=== PATIENT | female | born 1995 | race Caucasian/White ===

== ENCOUNTER 2023-10-18 00:06 | Inpatient (IN) ==
[2023-10-18] MEDS ORDERED: LIDOCAINE 1% LOCAL 20 ML VIAL INFIL PRN (00:46)
[2023-10-18] MEDS ORDERED: PENICILLIN GK 6 MU in DEXTROSE 5% 250 ML IV STA (00:46)
[2023-10-18] MEDS ORDERED: OXYTOCIN 30 UNITS/NSS 30 UNITS/500 ML BAG IV PRN ×2 (00:46→11:45)
[2023-10-18] MEDS ORDERED: BETAMETH SOD PHOS/ACETATE IA 6 MG/ML IM STA (00:50)
[2023-10-18] MEDS ORDERED: MAG SULFATE 6GM BOLUS FROM BAG IV ONE (00:51)
[2023-10-18] MEDS ORDERED: MAGNESIUM SULFATE / WTR 40 GM/1,000 ML BAG IV SCH (01:00)
[2023-10-18] MEDS ORDERED: MAGNESIUM SULFATE 40GM / WTR 1,000 ML BAG IV ONE (01:03)
[2023-10-18] MEDS ORDERED: BETAMETH SOD PHOS/ACETATE IA 6 MG/ML ONE (01:04)
--- NOTE | 2023-10-18 01:06 | History & Physical Report ---
Date of Service October 18, 2023 Assessment & Plan (1) labor in third trimester: Plan: Patient with contractions, bloody show, and advanced cervical dilation. Advised that she is at significant risk of delivery. We will manage her with magnesium bolus for neuroprotection, BMTZ, and GBS prophylaxis for unknown status at gestation. Patient was made aware that although we can hope labor will arrest, we need to anticipate that it likely will proceed to complete dilation and plan for that possibility. She does not have established care with either [facility] or [place] at this time and would be open to utilizing either for her infant's care if required. 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 Admission and Anticipated Discharge Date Admission Date: October 18, 2023 History of Present Illness Primary Care Provider: Viktoria Kim 28yo at 34w3d with [facility]. Patient c/o spotting in her underwear earlier today and states she called the office at 3pm and spoke with a nurse, but I cannot find documentation to reflect that this occurred or what was advised. She then paged the integration assistant this evening when she noted heavy flow of bright red blood. She has felt movement this evening, no leaking of water, and was feeling cramps. She drove to [facility]. Patient tells a nurse in her room that she has been drinking raspberry leaf tea. has been uncomplicated until today. On arrival to L&D the patient was found to have bright red blood of a axstuqonn-lodh-pzkr volume, with blood staining on the mons and perineum. T Cat 1, [place] Q3-6. Patient was noted to speak fluidly through a traced contraction, but when asked if she had been aware of it, she said yes she had felt it and she had been experiencing contractions like that every 3 minutes prior to coming in as well. Sterile speculum exam showed anterior lip of cervix visible above a large bulging bag of membranes. Digital exam was 8-9cm dilated, 75% effaced, -1 with vertex presentation. Allergies Allergy/AdvReac Type Severity Reaction Status Date / Time No Known Allergies Allergy Verified 10/02/23 16:21 Home Medications Medication Instructions Recorded Confirmed Type vit no.[id number] PO 04/10/23 10/02/23 History [Classic ] ondansetron HCl 4 mg tablet 4 mg PO Q6H PRN nausea and 05/25/23 10/02/23 Rx vomiting #20 tabs docusate sodium [Colace] PO PRN 06/13/23 10/02/23 History triamcinolone acetonide 0.1 % 1 applic topical BID #30 grams 08/07/23 10/02/23 Rx topical cream Patient History Medical History (Updated 10/18/23 @ 01:01 by Yulia Carreno MD) Varicella vaccination Surgical History (Updated 04/10/23 @ 13:11 by Pam Aguirre) Status post surgery L little finger Family History (Updated 04/10/23 @ 13:02 by Pam Aguirre) Mother Hypothyroid Denies family history of Ovarian cancer Breast cancer Colorectal cancer Social History (Updated 04/10/23 @ 13:04 by Pam Aguirre) Smoking Status: Never smoker Do You Dip or Chew Tobacco: No; Hx Alcohol Use: No Hx Substance Use: No Preferred Language: Vietnamese Communication Ability: Effective Aluminum Pool Installer Required: No Beliefs That Will Affect Care: None marital status: marital status details: Justin Felix (26) [phone] Current Living Situation: Spouse Current Living Situation Comment: lives with spouse, dogs current occupational status: employed current occupation: [employer] teacher Other Information That Helps Us Care for You: No Assistive Devices: None Physical Exam Constitutional: WD/WN, vitals as above + in distress Eyes: PERRL, conjunctivae normal, anicteric sclerae ENMT: external ear and nose normal, oropharynx normal Neck: supple Respiratory: normal respiratory effort and able to speak in complete sentences; no respiratory distress Cardiovascular: Rate/Rhythm: regular rate and regular rhythm Extremities: + pedal edema Gastrointestinal (Abdomen): Gravid / AGA, nontender Musculoskeletal: no cyanosis or clubbing, extremities motor strength 5/5 Skin: no rashes, warm and dry Neurologic: patellar DTR's 2+ bilat, sensation intact Psychiatric: A+Ox3, euthymic affect Genitourinary: Speculum/Bimanual Exam: + vaginal bleeding; no vaginal lesions OB Exam Abdomen: + vertex and + regular contractions (Q3) Manual OB Exam: + cervical dilation 8 cm, + cervical effacement 70%, + station -1 and + amniotic fluid (No leaking evident) OB Exam Monitor Tracing: + external FHT monitor used, + external uterine monitor used and + category I Lymphatic: no cervical or axillary lymphadenopathy Results & Data Vital Signs (Past 12 Hours) Vital Signs Temp Pulse Resp BP 10/18/23 00:11 18 10/18/23 00:11 98.2 F 83 18 138/88 Coding Level of Care Code None Diagnoses labor in third trimester O60.03
[2023-10-18] MEDS: LACTATED RINGER'S 1,000 ML IV PRN ×2 (01:31→06:59)
--- NOTE | 2023-10-18 01:33 | Communication Note ---
Date of Service: October 18, 2023 I discussed this case with [facility], and spoke with one of the neonatologists there. In the event of a here tonight with an infant requiring NICU care they have available space and will be able to accept. This is in line with the preferences of the patient as well.
--- NOTE | 2023-10-18 01:37 | Labor Progress Brief Note ---
Date of Service October 18, 2023 Subjective Contractions feeling more intense to the patient. Had intermittent urge to bear down but that has gone away at this moment. Good FM, VB continues, no ROM. Aware of PTL and aware that [facility] would be the likely NICU team to assist / accept transfer if needed. Assessment & Plan (1) labor in third trimester: Plan: PCN for GBS prophy s/p Mag 6g bolus for neuroprotection BMTZ first dose given Fetus palpates vertex Bleeding is more than anticipated for bloody show a/w dilation, so some concern for partial abruption. UDS sent, and status closely monitored. No current signs of infection. Patient counseled on likely delivery in the near future given advanced dilation. Since not expecting to transfer pre-delivery, 1g/hr magnesium will not be administered, and only the neuro mag bolus will be given. Admission and Anticipated Discharge Date Admission Date: October 18, 2023 Physical Exam Physical Exam: Tolerating contractions Genitourinary: FHT Cat 1 [place] Q3-5 when traced, lots of artifact Not re-examined at this time Results & Data Vital Signs (Past 12 Hours) Vital Signs Temp Pulse Resp BP 10/18/23 00:11 18 10/18/23 00:11 98.2 F 83 18 138/88 Coding Level of Care Code None Diagnoses labor in third trimester O60.03
[2023-10-18] MEDS ORDERED: SODIUM CHLORIDE 0.9% 250 ML IV PRN (01:45)
[2023-10-18 01:57] LABS: Hematocrit (blood only) 33.8 % (37.0-47.0); Hemoglobin 11.9 g/dl (12.0-16.0); Mean Corpuscular Hemoglobin 31.2 pg (25.0-34.0); Mean Corpuscular Hgb Conc 35.2 g/dL (32.0-36.0); Mean Corpuscular Volume 88.7 fL (80.0-100.0); Mean Platelet Volume 11.8 fL (9.4-12.4); Platelet Count 206 K/uL (130-400); RDW Coefficient of Variation 12.2 % (11.5-14.5); RDW Standard Deviation 39.7 fL (36.4-46.3); Red Blood Count 3.81 M/uL (4.20-5.40); White Blood Count 11.65 K/ul (4.8-10.8)
[2023-10-18] MEDS ORDERED: SODIUM CHLORIDE 0.9% PF INJ 10 ML VIAL ONE (02:06)
[2023-10-18] MEDS ORDERED: BUPIVACAINE 0.25% PF 30 ML VIAL ONE (02:06)
[2023-10-18] MEDS ORDERED: fentaNYL citrate PF 100 MCG/2 ML VIAL ONE (02:06)
[2023-10-18] MEDS ORDERED: fentANYL 2 MCG/ML BUPIVacaine 0.125%-NSS 100ML BAG ONE (02:06)
[2023-10-18] MEDS ORDERED: ePHEDrine sulfate 50 MG/ML AMP ONE (02:06)
[2023-10-18 02:07] LABS: Albumin Level 3.3 gm/dl (3.4-5.0); Bilirubin,Total 0.3 mg/dl (0.2-1.0); Calcium 8.2 mg/dl (8.6-10.3); Potassium 3.6 mmol/L (3.5-5.1)
[2023-10-18] MEDS ORDERED: LIDOCAINE 2%/EPINEPHRINE 1:200,000 20 ML PF ONE (02:07)
[2023-10-18 02:09] LABS: Amphetamines+Metham, Urine Neg (Neg); Barbiturates, Urine Neg (Neg); Benzodiazepine, Urine Neg (Neg); Cocaine, Urine Neg (Neg); MDMA (Ecstacy), Urine Neg (Neg); Marijuana, Urine Neg (Neg); Methadone, Urine Neg (Neg); Opiate, Urine Neg (Neg); Phencyclidine, Urine Neg (Neg)
[2023-10-18 02:13] LABS: Albumin Globulin Ratio 1.1 (0.9-2); BUN Creatinine Ratio 18.5 (10-20); Creatinine Clr Calc Pharmacy 141.9 ml/min; Est GFR (Non-African American) 122.5 ml/min; Globulin 3.1 gm/dl (2.5-4.0); Total Protein 6.4 gm/dl (6.0-8.3)
[2023-10-18] MEDS ORDERED: NALOXONE HCL 0.4 MG/1 ML VIAL/CARP IV PRN (02:30)
[2023-10-18] MEDS ORDERED: NALOXONE HCL 1 MG in SODIUM CHLORIDE 0.9% 1,000 ML IV PRN (02:30)
[2023-10-18] MEDS ORDERED: SODIUM CHLORIDE 0.9% PF INJ 10 ML VIAL EPI PRN (02:30)
[2023-10-18] MEDS ORDERED: LIDOCAINE 2%/EPINEPHRINE 1:200,000 20 ML PF EPI STA (02:30)
[2023-10-18] MEDS ORDERED: ePHEDrine sulfate 50 MG/ML AMP IV PRN (02:30)
[2023-10-18] MEDS ORDERED: BUPIVACAINE 0.25% PF 30 ML VIAL EPI PRN (02:30)
[2023-10-18] MEDS ORDERED: LIDOCAINE 2% MPF LOCAL 5 ML VIAL EPI PRN (02:30)
[2023-10-18] MEDS ORDERED: BUPIVACAINE 0.25% PF 30 ML VIAL EPI STA (02:30)
[2023-10-18] MEDS ORDERED: ROPIVACAINE 0.5% PF 5 MG/ML 20 ML VIAL EPI PRN (02:30)
[2023-10-18] MEDS ORDERED: NALBUPHINE HCL 5 MG in SYRINGE 0 ML IV PRN (02:30)
[2023-10-18] MEDS ORDERED: SODIUM CHLORIDE 0.9% PF INJ 10 ML VIAL EPI STA (02:30)
[2023-10-18] MEDS ORDERED: fentANYL 2 MCG/ML BUPIVacaine 0.125%-NSS 100ML BAG EPI PRN (02:30)
[2023-10-18] MEDS ORDERED: fentaNYL citrate PF 100 MCG/2 ML VIAL EPI STA (02:30)
[2023-10-18] MEDS ORDERED: fentaNYL citrate PF 100 MCG/2 ML VIAL EPI PRN (02:30)
[2023-10-18] MEDS ORDERED: diphenhydrAMINE 50 MG/ML VIAL IV PRN (02:30)
--- NOTE | 2023-10-18 02:30 | Anesthesiology Consultation ---
Date of Service October 18, 2023 Assessment & Plan ASA ASA2 Proposed Anesthesia Anesthesia Type: Labor Epidural History Height/Weight Height: 5 ft 7 in Weight: 78.925 kg Allergies Allergy/AdvReac Type Severity Reaction Status Date / Time No Known Allergies Allergy Verified 10/02/23 16:21 Medications Home Medications Medication Instructions Recorded Confirmed Last Taken vit no.[id number] 1 tabs PO DAILY 04/10/23 10/18/23 10/17/23 [Classic ] Active Medications Generic Name Dose Route Start Last Admin Trade Name Freq PRN Reason Stop Dose Admin Lactated Ringer's 1,000 mls @ 125 mls/hr 10/18/23 00:46 10/18/23 02:31 Lr IV 10/20/23 00:45 999 mls/hr .Q8H PRN Infusion L&D Protocol Protocol Past Medical History Medical History Varicella vaccination Past Family History Family History Mother Hypothyroid Denies family history of Ovarian cancer Breast cancer Colorectal cancer Past Surgical History Surgical History Status post surgery L little finger Social History Smoking Status: Never smoker Do You Dip or Chew Tobacco: No Hx Alcohol Use: No Hx Substance Use: No Physical Exam Vital Signs Last Vital Signs Temp 36.8 C 10/18/23 00:11 Pulse 91 H 10/18/23 03:03 Resp 18 10/18/23 00:11 BP 115/65 10/18/23 03:02 Pulse Ox 98 10/18/23 03:03 Testing Laboratory Results 10/18/23 01:30 10/18/23 01:30
[2023-10-18] MEDS: PENICILLIN GK 3 MU in DEXTROSE 5% 100 ML IV PRN ×2 (05:05→09:16)
--- NOTE | 2023-10-18 07:42 | Labor Progress Brief Note ---
Date of Service October 18, 2023 Subjective Delayed documentation; patient seen and examined around 0630. Comfortable with epidural, has been able to rest. VB has slowed significantly No LOF Assessment & Plan (1) labor in third trimester: Plan: Patient counseled this morning, currently in arrested labor. Suspicion of partial abruption as an inciting event vs bloody show from cervical dilation due to primary PTL. Bleeding has essentially stopped and status has been reassuring throughout her admission. Discussed that a patient in arrested PTL is often transferred to a tertiary center with NICU care. However, in this specific case, the patient has arrested with advanced dilation and is at risk of rapidly proceeding from her current status to delivery. Transfer via a rapid method such as flight (20 min between hospitals) could minimize the risk of her delivering outside a hospital, but icy / freezing-rain weather prohibits that option at this time. Transfer via ground transport (2-3 hours between hospitals) poses a higher risk of the patient delivering en route. Discussion with the patient reveals that this makes her nervous as well, and she would prefer to remain here at this time. She is aware we do not have NICU care but would stabilize a baby at this gestational age for likely transfer post-delivery and accepts that possibility. Discussed that if she ruptures, we would augment her labor from that point forward. labor delivery status: without delivery Qualified C ode(s): O60.03 - labor without delivery, third trimester Admission and Anticipated Discharge Date Admission Date: October 18, 2023 Physical Exam Genitourinary: 8-9cm/90/bulging bag/vertex at-1 No ROM at this time FHT Cat 1 [place] Q1-3 Results & Data Vital Signs (Past 12 Hours) Vital Signs Temp Pulse Resp BP Pulse Ox 10/18/23 07:28 96 10/18/23 07:28 91 H 10/18/23 07:24 90 10/18/23 07:24 115/68 10/18/23 07:23 97 10/18/23 07:23 93 H 10/18/23 07:18 97 10/18/23 07:18 97 H 10/18/23 07:13 96 10/18/23 07:13 95 H 10/18/23 07:08 97 10/18/23 07:08 96 H 10/18/23 07:08 121/61 10/18/23 07:03 97 10/18/23 07:03 97 H 10/18/23 06:58 97 10/18/23 06:58 103 H 10/18/23 06:54 96 H 10/18/23 06:54 124/78 10/18/23 06:53 96 10/18/23 06:53 94 H 10/18/23 06:48 97 10/18/23 06:48 100 H 10/18/23 06:43 97 10/18/23 06:43 96 H 10/18/23 06:40 93 H 10/18/23 06:40 127/71 10/18/23 06:38 97 10/18/23 06:38 95 H 10/18/23 06:33 97 10/18/23 06:33 96 H 10/18/23 06:28 97 10/18/23 06:28 96 H 10/18/23 06:23 97 10/18/23 06:23 98 H 10/18/23 06:23 119/65 10/18/23 06:18 97 10/18/23 06:18 91 H 10/18/23 06:13 97 10/18/23 06:13 87 10/18/23 06:10 103 H 10/18/23 06:10 131/62 10/18/23 06:08 97 10/18/23 06:08 105 H 10/18/23 06:04 94 10/18/23 06:04 93 H 10/18/23 06:03 94 10/18/23 06:03 92 H 10/18/23 05:58 96 10/18/23 05:58 92 H 10/18/23 05:53 95 10/18/23 05:53 89 10/18/23 05:53 110/63 10/18/23 05:48 95 10/18/23 05:48 79 10/18/23 05:43 95 10/18/23 05:43 82 10/18/23 05:38 96 10/18/23 05:38 82 10/18/23 05:38 110/65 10/18/23 05:33 96 10/18/23 05:33 91 H 10/18/23 05:28 97 10/18/23 05:28 82 10/18/23 05:23 97 10/18/23 05:23 88 10/18/23 05:23 121/67 10/18/23 05:18 98 10/18/23 05:18 87 10/18/23 05:13 98 10/18/23 05:13 91 H 10/18/23 05:08 98 10/18/23 05:08 85 10/18/23 05:08 121/69 10/18/23 05:03 97 10/18/23 05:03 85 10/18/23 04:58 98 10/18/23 04:58 87 10/18/23 04:53 98 10/18/23 04:53 91 H 10/18/23 04:49 80 10/18/23 04:49 114/64 10/18/23 04:48 97 10/18/23 04:48 85 10/18/23 04:43 97 10/18/23 04:43 86 10/18/23 04:43 117/67 10/18/23 04:39 85 10/18/23 04:39 114/66 10/18/23 04:38 97 10/18/23 04:38 92 H 10/18/23 04:34 87 10/18/23 04:34 120/82 10/18/23 04:33 98 10/18/23 04:33 89 10/18/23 04:28 98 10/18/23 04:28 92 H 10/18/23 04:28 88 10/18/23 04:28 117/69 10/18/23 04:24 88 10/18/23 04:24 107/59 L 10/18/23 04:23 95 10/18/23 04:23 85 10/18/23 04:18 97 10/18/23 04:18 82 10/18/23 04:18 109/66 10/18/23 04:14 87 10/18/23 04:14 115/64 10/18/23 04:13 97 10/18/23 04:13 81 10/18/23 04:08 97 10/18/23 04:08 84 10/18/23 04:08 108/63 10/18/23 04:03 97 10/18/23 04:03 78 10/18/23 04:03 106/60 10/18/23 03:58 97 10/18/23 03:58 81 10/18/23 03:58 81 10/18/23 03:58 105/60 10/18/23 03:53 97 10/18/23 03:53 78 10/18/23 03:53 82 10/18/23 03:53 108/61 10/18/23 03:48 97 10/18/23 03:48 76 10/18/23 03:48 81 10/18/23 03:48 103/58 L 10/18/23 03:44 74 10/18/23 03:44 106/58 L 10/18/23 03:43 98 10/18/23 03:43 70 10/18/23 03:38 97 10/18/23 03:38 79 10/18/23 03:36 76 10/18/23 03:36 101/56 L 10/18/23 03:34 78 10/18/23 03:34 103/55 L 10/18/23 03:33 98 10/18/23 03:33 72 10/18/23 03:32 75 10/18/23 03:32 104/57 L 10/18/23 03:30 71 10/18/23 03:30 101/57 L 10/18/23 03:28 99 10/18/23 03:28 82 10/18/23 03:28 76 10/18/23 03:28 102/57 L 10/18/23 03:26 73 10/18/23 03:26 102/61 10/18/23 03:24 71 10/18/23 03:24 106/62 10/18/23 03:23 96 10/18/23 03:23 70 10/18/23 03:18 98 10/18/23 03:18 85 10/18/23 03:18 75 10/18/23 03:18 101/62 10/18/23 03:16 18 10/18/23 03:16 97.9 F 18 10/18/23 03:16 83 10/18/23 03:16 104/72 10/18/23 03:14 86 10/18/23 03:14 108/68 10/18/23 03:13 99 10/18/23 03:13 94 H 10/18/23 03:12 83 10/18/23 03:12 96/57 L 10/18/23 03:10 88 10/18/23 03:10 101/63 10/18/23 03:08 98 10/18/23 03:08 84 10/18/23 03:08 113/57 L 10/18/23 03:06 88 10/18/23 03:06 117/67 10/18/23 03:04 93 H 10/18/23 03:04 122/70 10/18/23 03:03 98 10/18/23 03:03 91 H 10/18/23 03:02 87 10/18/23 03:02 115/65 10/18/23 03:00 88 10/18/23 03:00 117/66 10/18/23 02:58 97 10/18/23 02:58 91 H 10/18/23 02:58 118/70 10/18/23 02:56 93 H 10/18/23 02:56 116/70 10/18/23 02:54 101 H 10/18/23 02:54 116/75 10/18/23 02:53 98 10/18/23 02:53 93 H 10/18/23 02:52 90 10/18/23 02:52 133/71 10/18/23 02:48 98 10/18/23 02:48 89 10/18/23 02:43 98 10/18/23 02:43 88 10/18/23 02:38 97 10/18/23 02:38 106 H 10/18/23 02:33 98 10/18/23 02:33 85 10/18/23 02:01 91 H 10/18/23 02:01 135/73 10/18/23 01:55 88 10/18/23 01:55 132/69 10/18/23 01:51 85 10/18/23 01:51 129/79 10/18/23 01:45 88 10/18/23 01:45 129/79 10/18/23 01:40 99 H 10/18/23 01:40 130/75 10/18/23 01:35 92 H 10/18/23 01:35 132/79 10/18/23 00:11 18 10/18/23 00:11 98.2 F 83 18 138/88 Coding Level of Care Code None Diagnoses labor in third trimester without delivery O60.03 labor delivery status: without delivery
--- NOTE | 2023-10-18 10:20 | Labor Progress Brief Note ---
Date of Service October 18, 2023 Subjective CTSP by nursing secondary to increased bleeding. I was helping Dr. Pandya with c/s and was familiar with the situation of the patient. She is comfortable. Nursing removed three pads with at least 1/2 covered with blood and some clot. weight of 202cc Assessment & Plan (1) labor in third trimester: labor delivery status: without delivery Qualified Code(s): O60.03 - labor without delivery, third trimester Plan Patient is now complete and large bulging bag with continued bleeding. I suspect that she is having a partial abruption which is contributing to her ptl but thankfully the baby has a category one strip. At this point, Dr. Pandya and I both feel that we should go ahead with arom and delivery, derek now that she is complete and sadiq every 2-4 min. The benefits of remaining both to the mother and the fetus at this point are outweighed by the risks of prematurity to the baby. Want to give peds a reassuring baby now than prolong the abruption and continued risk of chorio--which the baby is showing no signs of . I explained the situation to the patient and the FOB and they express understanding and agree with the plan of care. As the fetus is reassuring, category one, plan to allow to labor down for a bit before active pushing. Will continue to monitor closely. Admission and Anticipated Discharge Date Admission Date: October 18, 2023 Physical Exam Physical Exam: cx c/c/0, large bulging bag perineum covered in blood and trickling out the vagina pad she is sitting on is 1/3 covered in blood. toco--q2-4min efm--130s wtih mod variability, spon accels to 160s, +scalp stim afebrile 3 doses of pcn arom--large amount of clear fluid and then a 100cc clot after. Results & Data Vital Signs (Past 12 Hours) Vital Signs Temp Pulse Resp BP Pulse Ox 10/18/23 10:08 97 10/18/23 10:08 91 H 10/18/23 10:07 92 10/18/23 10:07 109 H 10/18/23 10:03 97 10/18/23 10:03 107 H 10/18/23 09:58 96 10/18/23 09:58 100 H 10/18/23 09:55 91 H 10/18/23 09:55 128/72 10/18/23 09:53 97 10/18/23 09:53 95 H 10/18/23 09:48 95 10/18/23 09:48 99 H 10/18/23 09:43 96 10/18/23 09:43 88 10/18/23 09:42 93 H 10/18/23 09:42 128/81 10/18/23 09:38 97 10/18/23 09:38 92 H 10/18/23 09:33 97 10/18/23 09:33 97 H 10/18/23 09:28 96 10/18/23 09:28 93 H 10/18/23 09:25 86 10/18/23 09:25 134/66 10/18/23 09:23 97 10/18/23 09:23 99 H 10/18/23 09:18 97 10/18/23 09:18 96 H 10/18/23 09:13 97 10/18/23 09:13 94 H 10/18/23 09:08 96 10/18/23 09:08 105 H 10/18/23 09:08 125/67 10/18/23 09:03 95 10/18/23 09:03 93 H 10/18/23 08:58 97 10/18/23 08:58 99 H 10/18/23 08:54 92 H 10/18/23 08:54 36.9 C 20 128/67 10/18/23 08:53 96 10/18/23 08:53 94 H 10/18/23 08:48 97 10/18/23 08:48 90 10/18/23 08:43 97 10/18/23 08:43 97 H 10/18/23 08:39 97 H 10/18/23 08:39 124/67 10/18/23 08:38 97 10/18/23 08:38 105 H 10/18/23 08:33 97 10/18/23 08:33 97 H 10/18/23 08:28 97 10/18/23 08:28 93 H 10/18/23 08:24 125 H 10/18/23 08:24 97/61 L 10/18/23 08:23 98 10/18/23 08:23 119 H 10/18/23 08:19 94 01/24/24 08:19 96 H 10/18/23 08:18 95 10/18/23 08:18 89 10/18/23 08:13 95 10/18/23 08:13 96 H 10/18/23 08:11 96 H 10/18/23 08:11 115/70 10/18/23 08:08 96 10/18/23 08:08 96 H 10/18/23 08:03 95 10/18/23 08:03 92 H 10/18/23 07:58 96 10/18/23 07:58 102 H 10/18/23 07:53 96 10/18/23 07:53 109 H 10/18/23 07:53 112/64 10/18/23 07:50 94 10/18/23 07:50 93 H 10/18/23 07:48 95 10/18/23 07:48 86 10/18/23 07:43 96 10/18/23 07:43 95 H 10/18/23 07:39 91 H 10/18/23 07:39 121/60 10/18/23 07:38 96 10/18/23 07:38 94 H 10/18/23 07:33 36.6 C 20 97 10/18/23 07:33 93 H 10/18/23 07:28 96 10/18/23 07:28 91 H 10/18/23 07:24 90 10/18/23 07:24 115/68 10/18/23 07:23 97 10/18/23 07:23 93 H 10/18/23 07:18 97 10/18/23 07:18 97 H 10/18/23 07:13 96 10/18/23 07:13 95 H 10/18/23 07:08 97 10/18/23 07:08 96 H 10/18/23 07:08 121/61 10/18/23 07:03 97 10/18/23 07:03 97 H 10/18/23 06:58 97 10/18/23 06:58 103 H 10/18/23 06:54 96 H 10/18/23 06:54 124/78 10/18/23 06:53 96 10/18/23 06:53 94 H 10/18/23 06:48 97 10/18/23 06:48 100 H 10/18/23 06:43 97 10/18/23 06:43 96 H 10/18/23 06:40 93 H 10/18/23 06:40 127/71 10/18/23 06:38 97 10/18/23 06:38 95 H 10/18/23 06:33 97 10/18/23 06:33 96 H 10/18/23 06:28 97 10/18/23 06:28 96 H 10/18/23 06:23 97 10/18/23 06:23 98 H 10/18/23 06:23 119/65 10/18/23 06:18 97 10/18/23 06:18 91 H 10/18/23 06:13 97 10/18/23 06:13 87 10/18/23 06:10 103 H 10/18/23 06:10 131/62 10/18/23 06:08 97 10/18/23 06:08 105 H 10/18/23 06:04 94 10/18/23 06:04 93 H 10/18/23 06:03 94 10/18/23 06:03 92 H 10/18/23 05:58 96 10/18/23 05:58 92 H 10/18/23 05:53 95 10/18/23 05:53 89 10/18/23 05:53 110/63 10/18/23 05:48 95 10/18/23 05:48 79 10/18/23 05:43 95 10/18/23 05:43 82 10/18/23 05:38 96 10/18/23 05:38 82 10/18/23 05:38 110/65 10/18/23 05:33 96 10/18/23 05:33 91 H 10/18/23 05:28 97 10/18/23 05:28 82 10/18/23 05:23 97 10/18/23 05:23 88 10/18/23 05:23 121/67 10/18/23 05:18 98 10/18/23 05:18 87 10/18/23 05:13 98 10/18/23 05:13 91 H 10/18/23 05:08 98 10/18/23 05:08 85 10/18/23 05:08 121/69 10/18/23 05:03 97 10/18/23 05:03 85 10/18/23 04:58 98 10/18/23 04:58 87 10/18/23 04:53 98 10/18/23 04:53 91 H 10/18/23 04:49 80 10/18/23 04:49 114/64 10/18/23 04:48 97 10/18/23 04:48 85 10/18/23 04:43 97 10/18/23 04:43 86 10/18/23 04:43 117/67 10/18/23 04:39 85 10/18/23 04:39 114/66 10/18/23 04:38 97 10/18/23 04:38 92 H 10/18/23 04:34 87 10/18/23 04:34 120/82 10/18/23 04:33 98 10/18/23 04:33 89 10/18/23 04:28 98 10/18/23 04:28 92 H 10/18/23 04:28 88 10/18/23 04:28 117/69 10/18/23 04:24 88 10/18/23 04:24 107/59 L 10/18/23 04:23 95 10/18/23 04:23 85 10/18/23 04:18 97 10/18/23 04:18 82 10/18/23 04:18 109/66 10/18/23 04:14 87 10/18/23 04:14 115/64 10/18/23 04:13 97 10/18/23 04:13 81 10/18/23 04:08 97 10/18/23 04:08 84 10/18/23 04:08 108/63 10/18/23 04:03 97 10/18/23 04:03 78 10/18/23 04:03 106/60 10/18/23 03:58 97 10/18/23 03:58 81 10/18/23 03:58 81 10/18/23 03:58 105/60 10/18/23 03:53 97 10/18/23 03:53 78 10/18/23 03:53 82 10/18/23 03:53 108/61 10/18/23 03:48 97 10/18/23 03:48 76 10/18/23 03:48 81 10/18/23 03:48 103/58 L 10/18/23 03:44 74 10/18/23 03:44 106/58 L 10/18/23 03:43 98 10/18/23 03:43 70 10/18/23 03:38 97 10/18/23 03:38 79 10/18/23 03:36 76 10/18/23 03:36 101/56 L 10/18/23 03:34 78 10/18/23 03:34 103/55 L 10/18/23 03:33 98 10/18/23 03:33 72 10/18/23 03:32 75 10/18/23 03:32 104/57 L 10/18/23 03:30 71 10/18/23 03:30 101/57 L 10/18/23 03:28 99 10/18/23 03:28 82 10/18/23 03:28 76 10/18/23 03:28 102/57 L 10/18/23 03:26 73 10/18/23 03:26 102/61 10/18/23 03:24 71 10/18/23 03:24 106/62 10/18/23 03:23 96 10/18/23 03:23 70 10/18/23 03:18 98 10/18/23 03:18 85 10/18/23 03:18 75 10/18/23 03:18 101/62 10/18/23 03:16 18 10/18/23 03:16 36.6 C 18 10/18/23 03:16 83 10/18/23 03:16 104/72 10/18/23 03:14 86 10/18/23 03:14 108/68 10/18/23 03:13 99 10/18/23 03:13 94 H 10/18/23 03:12 83 10/18/23 03:12 96/57 L 10/18/23 03:10 88 10/18/23 03:10 101/63 10/18/23 03:08 98 10/18/23 03:08 84 10/18/23 03:08 113/57 L 10/18/23 03:06 88 10/18/23 03:06 117/67 10/18/23 03:04 93 H 10/18/23 03:04 122/70 10/18/23 03:03 98 10/18/23 03:03 91 H 10/18/23 03:02 87 10/18/23 03:02 115/65 10/18/23 03:00 88 10/18/23 03:00 117/66 10/18/23 02:58 97 10/18/23 02:58 91 H 10/18/23 02:58 118/70 10/18/23 02:56 93 H 10/18/23 02:56 116/70 10/18/23 02:54 101 H 10/18/23 02:54 116/75 10/18/23 02:53 98 10/18/23 02:53 93 H 10/18/23 02:52 90 10/18/23 02:52 133/71 10/18/23 02:48 98 10/18/23 02:48 89 10/18/23 02:43 98 10/18/23 02:43 88 10/18/23 02:38 97 10/18/23 02:38 106 H 10/18/23 02:33 98 10/18/23 02:33 85 10/18/23 02:01 91 H 10/18/23 02:01 135/73 10/18/23 01:55 88 10/18/23 01:55 132/69 10/18/23 01:51 85 10/18/23 01:51 129/79 10/18/23 01:45 88 10/18/23 01:45 129/79 10/18/23 01:40 99 H 10/18/23 01:40 130/75 10/18/23 01:35 92 H 10/18/23 01:35 132/79 10/18/23 00:11 18 10/18/23 00:11 36.8 C 83 18 138/88 Coding Level of Care Code None Diagnoses labor in third trimester without delivery O60.03 labor delivery status: without delivery
[2023-10-18 11:29] LABS: Base Excess Cord Venous Blood -3.9 mEq/L (-7.7-1.9); Cord Venous Blood HCO3 22 mmol/L (18.4-26.8); Cord Venous Blood PCO2 40 mmHg (30.4-57.2); Cord Venous Blood PO2 31 mmHg (14.1-43.3); Cord Venous Blood pH 7.34 (7.20-7.44); O2 Saturation Cord Venous Bld 62.4 % (<68)
[2023-10-18 11:30] LABS: Base Excess Cord Arterial Bld -4.4 mEq/L (-9-1.8); CO2 Cord Arterial Blood 50 mmHg (39.1-73.5); HCO3 Cord Arterial Blood 23 mmol/L (19.7-28.5); Oxygen Sat Cord Arterial Blood < 60.0 % (<60); PO2 Cord Arterial Blood 22 mmHg (4.1-31.7); pH Cord Arterial Blood 7.27 (7.1-7.38)
--- NOTE | 2023-10-18 11:33 | Delivery Summary ---
Vaginal Delivery Summary Date of Service October 18, 2023 Vaginal Delivery Summary and 2nd Degree LAC Spontaneous vaginal delivery the patient had arrived under the previous provider over the night with spontaneous labor she also had noted to have bleeding and there was some concern for abruption she received magnesium and steroids and antibiotics by the time I signed over she was 9 cm. At that time we were then proceeding with a different patient taking care of of a different emergency and at that time her bleeding increased Dr. Silva then assessed the patient was fully dilated she performed artificial rupture membranes which is something we both talked about is reasonable with the increased bleeding being concern for possible abruption. Afterwards once the other emergency was completed we were able to have her push and she delivered a baby in occiput anterior position. There was a loose nuchal cord x 2 which is easily passed over the baby's head baby is limited by gentle traction no excessive force live vigorous male infant cord clamped and cut cord gases obtained cord blood obtained placenta was sent for pathology after being removed with gentle traction IV Pitocin started second-degree tear repaired with 3-0 Vicryl sponge and instrument counts correct estimated blood loss 200 mL. I do suspect a mild partial abruption certainly not 100% certain but it does fit clinically with her onset of labor bleeding and increased bleeding want artificial rupture membranes [facility] Vaginal Delivery Charge Delivery Type Details: and 2nd Degree LAC
[2023-10-18] MEDS ORDERED: oxyCODONE/ACETAMINOPHEN 5mg/325mg TAB PO PRN (11:45)
[2023-10-18] MEDS ORDERED: BENZOCAINE 20% SPRY 85 APPLN/85 GM CAN EXT PRN (11:45)
[2023-10-18] MEDS ORDERED: DIPHTHER/TETAN/PERTUS Vaccine (Tdap, Adol/Adult) 0.5mL IM ONE (11:45)
[2023-10-18] MEDS ORDERED: HYDROCORTISONE ACETATE 25 MG SUPP PR PRN (11:45)
[2023-10-18] MEDS ORDERED: ACETAMINOPHEN 325 MG TAB PO PRN (11:45)
[2023-10-18] MEDS ORDERED: bisacodyL 10 MG SUPP PR PRN (11:45)
--- NOTE | 2023-10-18 13:28 | Anesthesia Procedure Note ---
Date of Service October 18, 2023 Anesthesia Post Epidural Note Vital Signs Vital Signs: Temp Pulse Resp BP Pulse Ox 36.8 C 73 20 105/62 98 10/18/23 11:38 10/18/23 13:25 10/18/23 12:25 10/18/23 13:25 10/18/23 11:08 Notes Mental Status: alert / awake / arousable and participated in evaluation Patient Amnestic to Procedure: No Nausea / Vomiting: adequately controlled Pain: adequately controlled Airway Patency, RR, SpO2: stable & adequate BP & HR: stable & adequate Hydration State: stable & adequate Neuraxial Anesthesia: was administered and sensory block is resolving Anesthetic Complications: no major complications apparent and Pt Satisfied with anesthetic care Epidural: Removed without complications and With tip intact
[2023-10-18] MEDS: IBUPROFEN 600 MG TAB PO PRN ×2 (15:34→19:41)
[2023-10-18] MEDS: DOCUSATE SODIUM 100 MG CAP PO SCH (20:38)
[2023-10-19] MEDS: IBUPROFEN 600 MG TAB PO PRN ×3 (00:29→22:09)
[2023-10-19 06:27] LABS: Hematocrit (blood only) 29.4 % (37.0-47.0); Hemoglobin 10.1 g/dl (12.0-16.0); Mean Corpuscular Hemoglobin 31.1 pg (25.0-34.0); Mean Corpuscular Hgb Conc 34.4 g/dL (32.0-36.0); Mean Corpuscular Volume 90.5 fL (80.0-100.0); Mean Platelet Volume 11.7 fL (9.4-12.4); Platelet Count 200 K/uL (130-400); RDW Coefficient of Variation 12.4 % (11.5-14.5); RDW Standard Deviation 41.3 fL (36.4-46.3); Red Blood Count 3.25 M/uL (4.20-5.40); White Blood Count 16.79 K/ul (4.8-10.8)
--- NOTE | 2023-10-19 07:10 | Obstetrical Progress Note ---
Date of Service <Danica Gore DO - Last Filed: 10/19/23 07:14> October 19, 2023 Assessment & Plan <Danica Gore DO - Last Filed: 10/19/23 07:14> (1) care following vaginal delivery: Plan Feels well today. Eating well, voiding well, ambulating well. Pain well controlled with tylenol/motrin. Routine care; OOB, ambulation, continue regular diet. Anticipate discharge 24-48 hours after , likely tomorrow. After discharge will have 6 week follow-up with Dr. Pandya. <Sara Pandya MD, FACOG - Last Filed: 10/19/23 07:58> (1) care following vaginal delivery: Subjective <Danica Gore DO - Last Filed: 10/19/23 07:14> Pt is a 28 y/o female who is PPD#1 following at 34 weeks. Pt states she is feeling really well today. She has been up since the delivery a bit to move around, voiding on her own, and tolerating oral intake. She states her cramps are not too bad and her bleeding has been very mild. She states that she is breast feeding and the baby latched very well once yesterday but she has been having some issues with him waking up to latch since, so she has been expressing her milk. No questions or complaints at this time. Appears well. Would like to plan for D/C tomorrow am. Constitutional: no fever, no chills or no sweats Respiratory: no dyspnea Cardiovascular: no chest pain or no palpitations Breast: no breast pain Genitourinary (female): no dysuria Neurologic: no headache(s) no changes in vision, no headaches Physical Exam <Danica Gore DO - Last Filed: 10/19/23 07:14> General: Alert, oriented. No acute distress. Cardiac: Regular rate and rhythm, no murmurs, rubs, or gallops. Respiratory: Clear to auscultation bilaterally, no wheezes/rales/rhonchi. No increased work of breathing. Symmetrical chest rise. No respiratory distress. Abdomen: Soft, nontender, nondistended. Bowel sounds present. Uterus: Uterine fundus firm, palpable below the umbilicus. Lower extremities: No lower extremity edema or swelling. No deep calf pain. Results & Data <Danica Gore DO - Last Filed: 10/19/23 07:14> Vital Signs (Past 12 Hours) Vital Signs Temp Pulse Resp BP Pulse Ox O2 Del Method 10/19/23 03:45 36.4 C L 69 16 102/63 98 Room Air 10/19/23 00:30 36.4 C L 76 18 108/64 97 Room Air 10/18/23 20:30 36.7 C 81 18 110/66 Room Air Supervising Physician <Sara Pandya MD, FACOG - Last Filed: 10/19/23 07:58> Co-Signing Physician Notes Resident Physician Supervision Note: I was present with Dr. Gore during the history and exam. I discussed the case with the resident and agree with the findings and plan as documented in the note. Any exceptions or clarifications are listed here: [None] Documented By: Sara Pandya MD, FACOG Resident Activity Tracking <Danica Gore DO - Last Filed: 10/19/23 07:14> Resident Involvement: Resident Care Provided Care Provided: Adult [facility] Medicine
[2023-10-19] MEDS: PRENATAL VITAMIN 1 TAB PO SCH (08:03)
[2023-10-19] MEDS: DOCUSATE SODIUM 100 MG CAP PO SCH ×2 (08:03→22:10)
[2023-10-19] MEDS ORDERED: bisacodyL 5 MG TABEC PO SCH (20:00)
--- NOTE | 2023-10-20 06:27 | Obstetrical Progress Note ---
Date of Service <Danica Gore DO - Last Filed: 10/20/23 06:33> October 20, 2023 Assessment & Plan <Danica Gore DO - Last Filed: 10/20/23 06:33> (1) care following vaginal delivery: Plan Feels well today. Eating well, voiding well, ambulating well. Vitals stable overnight, afebrile. Pain well controlled with tylenol/motrin still. Routine care; OOB, ambulation, continue regular diet. Anticipate discharge 24-48 hours after , likely today. After discharge will have 6 week follow-up with Dr. Pandya. <Yasemin Silva MD, FACOG - Last Filed: 10/20/23 08:08> (1) care following vaginal delivery: Subjective <Danica Gore DO - Last Filed: 10/20/23 06:33> Pt is a 28 y/o female who is PPD#2 following at 34 weeks. Today, pt states she is continuing to feel good. She states her cramps are mild and her bleeding continues to improve by the day. No questions or concerns at this time. She is breast feeding and it has been going well so far with good latching. She continues to tolerate oral intake, ambulate on own, and void without discomfort. Wishes to go home today if possible. Constitutional: no fever, no chills or no sweats Respiratory: no dyspnea Cardiovascular: no chest pain or no palpitations Breast: no breast pain Genitourinary (female): no dysuria Neurologic: no headache(s) Physical Exam <Danica Gore DO - Last Filed: 10/20/23 06:33> General: Alert, oriented. No acute distress. Cardiac: Regular rate and rhythm, no murmurs, rubs, or gallops. Respiratory: Clear to auscultation bilaterally, no wheezes/rales/rhonchi. No increased work of breathing. Symmetrical chest rise. No respiratory distress. Abdomen: Soft, nontender, nondistended. Bowel sounds present. Uterus: Uterine fundus firm, palpable below the umbilicus. Lower extremities: No lower extremity edema or swelling. No deep calf pain. Results & Data <Danica Gore DO - Last Filed: 10/20/23 06:33> Vital Signs (Past 12 Hours) Vital Signs Temp Pulse Resp BP Pulse Ox O2 Del Method 10/20/23 00:45 36.8 C 83 18 106/66 97 Room Air 10/19/23 20:50 36.4 C L 67 16 114/73 97 Room Air Supervising Physician <Yasemin Silva MD, FACOG - Last Filed: 10/20/23 08:08> Co-Signing Physician Notes Resident Physician Supervision Note: I interviewed and examined the patient. Discussed with Dr. Dr. Gore and agree with findings and plan as documented in the note. Any exceptions or clarifications are listed here: Doing well. Baby to stay for 4-5 days. d/c to room. instructions reviewed. Documented By: Yasemin Silva MD, FACOG Resident Activity Tracking <Danica Gore DO - Last Filed: 10/20/23 06:33> Resident Involvement: Resident Care Provided Care Provided: Adult Hospital Medicine
--- NOTE | 2023-10-20 06:40 | Obstetrical Progress Note ---
Date of Service October 20, 2023 Assessment & Plan (1) care following vaginal delivery: (1) care following normal spontaneous vaginal delivery. Patient is comfortable and doing very well today. She states no difficulties with ambulation, voiding, or eating. Rates pain as 2/10, feels it is well controlled with Tylenol and Motrin.Plan to continue routine care until anticipated discharge today (will be 48 hours after ). Will follow-up in outpatient clinic with Dr. Pandya in 6 weeks. Subjective Pt is a 28 y/o female who is PPD#2 following at 34 weeks. Expresses feeling very well overall and prepared for discharge today. Since delivery, she has been mobilizing herself, independently voiding, and managing oral intake on a regular diet. She has been passing gas but not had a bowel movement yet. She notes decrease in cramps and minimal bleeding. Had difficulty with baby latching on POD#1 but notes significant improvement in the last 24 hours. States no questions or concerns at present. Positive response to post care and recovery supports the consideration for discharge. Constitutional: No fever, chills, or sweats Respiratory: No dyspnea Cardiovascular: No chest pain or heart palpitations Breast: No breast pain Genitourinary: No dysuria Neurologic: No headaches Physical Exam Constitutional General: Alert & Oriented x 3. No acute distress. Cardiac: Regular rate and rhythm. No murmurs, rubs, or gallops. Respiratory: Breath sounds symmetrical and CTA. No wheezing, rales, rhonchi. No increased work of breathing. Abdomen: Soft, nontender, postgravid. Bowel sounds present. Uterus: Fundus firm on palpation and below the umbilicus. Lower extremities: No lower extremity edema. No deep calf pain. Results & Data Vital Signs (Past 12 Hours) Vital Signs Temp Pulse Resp BP Pulse Ox O2 Del Method 10/20/23 00:45 36.8 C 83 18 106/66 97 Room Air 10/19/23 20:50 36.4 C L 67 16 114/73 97 Room Air
[2023-10-20 06:51] LABS: Hematocrit (blood only) 29.6 % (37.0-47.0); Hemoglobin 10.1 g/dl (12.0-16.0)
[2023-10-20] MEDS: PRENATAL VITAMIN 1 TAB PO SCH (08:30)
[2023-10-20] MEDS: DOCUSATE SODIUM 100 MG CAP PO SCH (08:30)
[2023-10-20] MEDS: IBUPROFEN 600 MG TAB PO PRN (18:36)
== END 2023-10-20 19:15 | disposition home or self-care (01) | DRG 807 ==
LOC: OPB 00:06 → 4S1 00:10 → 4E2 15:49

== ENCOUNTER 2025-03-25 04:12 | Inpatient (IN) ==
[2025-03-25] MEDS: OXYTOCIN 10 UNITS/ML 10ML VIAL IM ONE (04:26)
[2025-03-25] MEDS ORDERED: LACTATED RINGER'S 1,000 ML IV PRN (04:40)
[2025-03-25] MEDS ORDERED: OXYTOCIN 30 UNITS/NSS 30 UNITS/500 ML BAG IV PRN ×2 (04:40→05:11)
--- NOTE | 2025-03-25 04:45 | History & Physical Report ---
Date of Service March 25, 2025 Assessment & Plan (1) Normal labor: Plan plan delivery ,see delivery note. History of Present Illness Chief Complaint: contractions Primary Care Provider: Viktoria Kim Patient is a 29yowf with iup at 38 6/7 who presents to labor and delivery in a wheelchair, water just broke and needs to push. Patient was here earlier for decreased FM with a reactive nst, occasional contraction. Was 3cm. contractions then woke her up from sleep and quickly progressed. and Delivery Plans Prior hx delivery, partial placental abruption @ 34 weeks *MFM Consult (11/15/24 @ [facility] [place] *cx length us 16-24wks, & then if normal, can stop *no progesterone unless shortened cx. OB Labs: Blood Type O Positive 08/20/24 Antibody Screen NEGATIVE 08/20/24 Hgb 11.0 g/dl (12.0-16.0) L 01/13/25 Hct 32.8 % (37.0-47.0) L 01/13/25 MCV 86.4 fL (80.0-100.0) 08/20/24 Plt Count 230 K/uL (130-400) 08/20/24 Rubella IgG Antibody Immune (Immune) 08/20/24 RPR Nonreactive (Nonreactive) 04/17/23 Treponema pallidum Ab Negative (Negative) 01/13/25 Hep Bs Antigen Negative (Negative) 08/20/24 Hep Bs Antigen NON-REACTIVE (NON-REACTIVE) 04/17/23 Hepatitis C Antibody Negative (Negative) 08/20/24 Hepatitis C Ab (EIA) NON-REACTIVE (NON-REACTIVE) 04/17/23 HIV 1&2 Ab/P24 Ag 4thGn Negative (Negative) 08/20/24 HIV (1&2) Ag & Ab Conf NON-REACTIVE (NON-REACTIVE) 04/17/23 Glucose 1 Hr 50 gm 70 mg/dl (70-130) 01/13/25 Maternal Serum AFP 39.0 ng/mL 06/13/23 OB Optional Labs: Chlamydia trachomatis RNA Not Detected (NotDetected) 08/20/24 Neisseria gonorrhoeae RNA Not Detected (NotDetected) 08/20/24 Alpha Fetoprotein Triple Screen SEE NOTE 06/13/23 Labs Reviewed: [facility] 14 last negative.--akh Declines cfdna--mln accepts QS--neg smp gbs neg Allergies Allergy/AdvReac Type Severity Reaction Status Date / Time No Known Allergies Allergy Verified 03/21/25 10:06 Home Medications Medication Instructions Recorded Confirmed Type PNV [id number] PO 08/14/24 03/21/25 History [ Gummies] Patient History Medical History History of placental abruption partial labor in third trimester Varicella vaccination Surgical History Status post surgery L little finger Family History Mother Hypothyroid Denies family history of Ovarian cancer Breast cancer Colorectal cancer Social History Smoking Status: Never smoker Second Hand Exposure: No; Do You Dip or Chew Tobacco: No; Hx Alcohol Use: No Hx Substance Use: No Preferred Language: Chinese Communication Ability: Effective Wicker Worker Required: No Beliefs That Will Affect Care: None marital status: marital status details: Justin Felix (27) [phone] Current Living Situation: Spouse and Family Current Living Situation Comment: lives with spouse, son, dogs current occupational status: employed 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 Date GA wks Lbr Lgth wt Sex Type del Anes Place Del Prov ? Comment 10/18/23 34 5lb 7.5oz M Epi dural [facility] labor, partial placental abruption [employer] History noncontributory Physical Exam Constitutional: WD/WN, vitals as above Gastrointestinal (Abdomen): gravid Psychiatric: A+Ox3, euthymic affect Genitourinary: cx--c/c/+2 efm--fht present Results & Data Vital Signs (Past 12 Hours) Vital Signs Pulse BP 03/25/25 04:37 90 108/75 03/25/25 04:26 73 111/74 Coding Level of Care Code None Diagnoses Normal labor O80; Z37.9
--- NOTE | 2025-03-25 04:51 | Delivery Summary ---
Vaginal Delivery Summary Date of Service March 25, 2025 Vaginal Delivery Summary and 2nd Degree LAC Pre-operative Diagnosis: at 38 6/7 active labor Post-operative Diagnosis: same precipitous delivery Procedure: second degree laceration repair EBL: 100cc Anesthesia: local lidocaine Procedure: The patient presented to labor and delivery in active labor and had srom for clear fluid in the wheelchair. Immediately needed to push. The patient pushed for one contraction to deliver a viable female infant in arnol position. The rest of the was then delivered without difficulty. The baby was vigorous. The nose and mouth were bulb suctioned and the infant was placed in the maternal abdomen for drying and attention. Cord was clamped and cut at one minute of life. Cord blood obtained. Placenta delivered spontaneous, intact with a three vessel cord. Cervix/sulci/rectum were intact. A second degree perineal laceration was repaired in the normal standard fashion. Hemostasis obtained with IM pitocin and fundal massage. Apgars were 8/9. Mother and baby doing well at the end of the delivery. [facility] Vaginal Delivery Charge Delivery Type Details: and 2nd Degree LAC
[2025-03-25] MEDS: LIDOCAINE 1% LOCAL 20 ML VIAL INFIL PRN (04:57)
[2025-03-25] MEDS ORDERED: ACETAMINOPHEN 325 MG TAB PO PRN (05:11)
[2025-03-25] MEDS ORDERED: HYDROCORTISONE ACETATE 25 MG SUPP PR PRN (05:11)
[2025-03-25] MEDS: DIPHTHER/TETAN/PERTUS Vaccine (Tdap, Adol/Adult) 0.5mL IM ONE (05:16)
[2025-03-25 05:35] LABS: Hematocrit (blood only) 32.5 % (37.0-47.0); Hemoglobin 10.6 g/dl (12.0-16.0); Mean Corpuscular Hemoglobin 26.7 pg (25.0-34.0); Mean Corpuscular Volume 81.9 fL (80.0-100.0); Platelet Count 225 K/uL (130-400); RDW Standard Deviation 38.5 fL (36.4-46.3); Red Blood Count 3.97 M/uL (4.20-5.40); White Blood Count 9.75 K/ul (4.8-10.8)
[2025-03-25] MEDS: BENZOCAINE 20% SPRY 85 APPLN/85 GM CAN EXT PRN (06:22)
[2025-03-25] MEDS: IBUPROFEN 600 MG TAB PO PRN (06:22)
[2025-03-25] MEDS: OXYTOCIN 10 UNITS/ML VIAL ONE (06:46)
[2025-03-25] MEDS: DOCUSATE SODIUM 100 MG CAP PO SCH (07:35)
[2025-03-25] MEDS: PRENATAL VITAMIN 1 TAB PO SCH (07:35)
[2025-03-25 22:17] VITALS: O2SAT 98
--- NOTE | 2025-03-26 07:57 | Obstetrical Progress Note ---
Date of Service March 26, 2025 Assessment & Plan (1) state: D/C to home today, routine pp recovery Subjective Ambulation: ambulating normally Voiding: no voiding problems Passing Gas:: Yes Diet Tolerance:: regular diet Lochia:: Small Feeding Type:: breast feeding Physical Exam Constitutional WD/WN, vitals as above Eyes PERRL, conjunctivae normal, anicteric sclerae Neck normal visual inspection Respiratory normal respiratory effort and able to speak in complete sentences; no respiratory distress and no labored breathing Cardiovascular Rate/Rhythm: regular rate and regular rhythm Extremities: no edema Chest (Breasts) Chest: normal inspection of chest Gastrointestinal (Abdomen) Inspection/Auscultation: abdomen normal to inspection Soft, postgravid Psychiatric A+Ox3, euthymic affect Genitourinary OB Exam Abdomen: + fundal height Fundus: + firm and + relation to umbilicus (fundus just below umbilicus); not tender Results & Data Vital Signs (Past 12 Hours) Vital Signs Temp Pulse Resp BP Pulse Ox O2 Del Method 03/26/25 04:49 97.7 F 80 17 129/77 98 Room Air 03/25/25 23:30 97.7 F 78 16 115/78 98 Room Air
[2025-03-26 08:12] VITALS: BP 117/82; PULSE 73; RESP 16; TEMP 97.9
== END 2025-03-26 11:30 | disposition home or self-care (01) | DRG 807 ==
LOC: OPB 04:12 → 4S1 04:16 → 4E2 07:23